=== PATIENT | male | born 2000 | race Caucasian/White ===

== ENCOUNTER 2023-07-08 15:25 | Inpatient (IN) ==
--- NOTE | 2023-07-08 15:54 | Emergency Department Note ---
History of Present Illness General Chief complaint: Hand Injury/Pain Stated complaint: R HAND SWELLING Time Seen by Provider: 07/08/23 15:34 History of Present Illness NAME: CARROLL CORDOVA AGE: 23 SEX: M : 2000 ARRIVES VIA: Walk-In INFORMANT: Patient ED PROVIDER(S): [facility], Marcelo Cruz The patient is well-appearing 23-year-old male who arrives to the emergency department for evaluation of right hand and forearm swelling. He reports no history of injury, no history of bleeding or clotting disorders. He states the palm of his hand began to swell, and he states the swelling extended up into the forearm. He denies significant pain with the edema, or loss of sensation/strength. He does report he believes the swelling has significantly decreased since his arrival. Home Medications Medication Instructions Recorded Confirmed Type Supplement See Rx Instructions .Route .COMPLEX 07/08/23 07/08/23 History Allergies Allergy/AdvReac Type Severity Reaction Status Date / Time animal dander Allergy Unknown Unknown Unverified 07/08/23 18:45 Past Med/Surg History Medical History Environmental and seasonal allergies Asthma Surgical History No pertinent past surgical history Social History Smoking Status: Current every day smoker Tobacco Type: E-cigarettes / Vaping and Smokeless Tobacco (Dip or Chew) Do You Dip or Chew Tobacco: Yes; Hx Alcohol Use: Yes Alcohol type: hard liquor Hx Substance Use: Yes Last Used Substance: Hours (ago) Last Used Substance Other:: 12 hours Substance Use Type Other:: Medical Marijuana Preferred Language: Burundian Prevocational/Rehabilitation Counselor Required: No Beliefs That Will Affect Care: None Current Living Situation: Alone Other Information That Helps Us Care for You: No Feels Safe at Home: Yes Safety Concerns: Feels Safe At This Time Assistive Devices: None Physical Exam Vital Signs Vital Signs - 24 hr 07/08/23 15:29 07/08/23 17:40 07/08/23 17:43 Temperature 36.9 C 36.5 C Temperature Source Temporal Artery Scan Oral Pulse Rate 104 H Pulse Rate [Left Finger] 105 H 104 H Pulse Rate from SpO2 Sensor Pulse Rhythm [Left Finger] Regular Pulse Strength [Left Finger] Normal Respiratory Rate 15 18 18 Respiratory Effort / Characteristics Non-Labored Spontaneous Non-Labored Spontaneous Respiratory Depth Normal Normal Respiratory Pattern Regular Blood Pressure 158/104 H Blood Pressure [Left Arm] 173/112 H 166/90 H Blood Pressure Mean 122 Blood Pressure Mean [Left Arm] 132 115 Blood Pressure Position [Left Arm] Lying Pulse Oximetry 97 97 98 Oxygen Delivery Method Room Air Room Air Sepsis Recent Fever Within 48 Hours No Sepsis New/Unexplained Change in Mental Status No Sepsis Action Taken by Nursing No Action Required 07/08/23 17:55 07/08/23 18:00 07/08/23 18:12 Temperature Temperature Source Pulse Rate 101 H 89 Pulse Rate [Left Finger] Pulse Rate from SpO2 Sensor 91 H Pulse Rhythm [Left Finger] Pulse Strength [Left Finger] Respiratory Rate 22 Respiratory Effort / Characteristics Respiratory Depth Respiratory Pattern Blood Pressure 149/108 H Blood Pressure [Left Arm] Blood Pressure Mean 122 Blood Pressure Mean [Left Arm] Blood Pressure Position [Left Arm] Pulse Oximetry 97 Oxygen Delivery Method Room Air Sepsis Recent Fever Within 48 Hours Sepsis New/Unexplained Change in Mental Status Sepsis Action Taken by Nursing 07/08/23 18:12 07/08/23 18:13 07/08/23 18:30 Temperature 37.0 C Temperature Source Oral Pulse Rate 97 H 103 H Pulse Rate [Left Finger] 93 H Pulse Rate from SpO2 Sensor 101 H 104 H Pulse Rhythm [Left Finger] Pulse Strength [Left Finger] Respiratory Rate 19 20 20 Respiratory Effort / Characteristics Respiratory Depth Respiratory Pattern Blood Pressure Blood Pressure [Left Arm] 149/108 H Blood Pressure Mean Blood Pressure Mean [Left Arm] 121 Blood Pressure Position [Left Arm] Pulse Oximetry 98 99 97 Oxygen Delivery Method Room Air Room Air Room Air Sepsis Recent Fever Within 48 Hours Sepsis New/Unexplained Change in Mental Status Sepsis Action Taken by Nursing 07/08/23 18:32 07/08/23 18:32 07/08/23 18:44 Temperature 36.7 C Temperature Source Oral Pulse Rate 103 H Pulse Rate [Left Finger] 109 H Pulse Rate from SpO2 Sensor 107 H Pulse Rhythm [Left Finger] Regular Pulse Strength [Left Finger] Normal Respiratory Rate 14 22 Respiratory Effort / Characteristics Non-Labored Spontaneous Respiratory Depth Normal Respiratory Pattern Regular Blood Pressure 152/102 H Blood Pressure [Left Arm] 152/102 H Blood Pressure Mean 108 Blood Pressure Mean [Left Arm] 118 Blood Pressure Position [Left Arm] Sitting Pulse Oximetry 98 97 Oxygen Delivery Method Room Air Room Air Sepsis Recent Fever Within 48 Hours Sepsis New/Unexplained Change in Mental Status Sepsis Action Taken by Nursing 07/08/23 19:00 07/08/23 19:00 Temperature Temperature Source Pulse Rate 119 H Pulse Rate [Left Finger] Pulse Rate from SpO2 Sensor 120 H Pulse Rhythm [Left Finger] Pulse Strength [Left Finger] Respiratory Rate 20 Respiratory Effort / Characteristics Respiratory Depth Respiratory Pattern Blood Pressure 158/88 H Blood Pressure [Left Arm] Blood Pressure Mean 115 Blood Pressure Mean [Left Arm] Blood Pressure Position [Left Arm] Pulse Oximetry 97 Oxygen Delivery Method Room Air Sepsis Recent Fever Within 48 Hours Sepsis New/Unexplained Change in Mental Status Sepsis Action Taken by Nursing VITALS: Vitals are noted on the nurse's note and reviewed by myself. Tachycardia, and hypertension present. GENERAL: 23-year-old male, in no acute distress, nondiaphoretic, well-developed well-nourished. SKIN: The skin was without rashes, erythema, edema, or bruising. HEAD: Normocephalic atraumatic. HEART: Regular rate and rhythm without murmurs gallops or rubs. LUNGS: Clear to auscultation bilaterally without wheezes, rales or rhonchi. No retractions or accessory muscle use. MUSCULOSKELETAL: No muscle atrophy, erythema, or edema noted. Full range of motion without joint tenderness in all extremities. No tenderness to palpation. Normal gait. Strength 5/5 throughout. NEURO: Patient was alert and oriented to person place and time. No focal neurological deficits. Course Administered Medications Discontinued Medications Diazepam (Diazepam 5 Mg/Ml 10ml Vial) 5 mg IV NOW STA Stop: 07/08/23 17:23 Last Admin: 07/08/23 17:39 Dose: 5 mg Documented By: GOPAL Diazepam (Diazepam 5 Mg/Ml 10ml Vial) 5 mg IV NOW STA Stop: 07/08/23 18:16 Last Admin: 07/08/23 18:25 Dose: 5 mg Documented By: GOPAL Diazepam (Diazepam 5 Mg/Ml 10ml Vial) 5 mg IV NOW STA Stop: 07/08/23 18:54 Last Admin: 07/08/23 18:54 Dose: 5 mg Documented By: GOPAL Multivitamins 10 ml/ Thiamine HCl 100 mg/ Folic Acid 1 mg/Sodium Chloride 1,011.2 mls @ 500 mls/hr IV .Q2H2M ONE Stop: 07/08/23 19:23 Last Infusion: 07/08/23 20:45 Dose: Infused Documented By: Admin: 07/08/23 18:25 Dose: 500 mls/hr Documented By: GOPAL Sodium Chloride (Nss) 1,000 mls @ 999 mls/hr IV .Q1H1M WISAM Stop: 07/08/23 18:24 Last Infusion: 07/08/23 18:40 Dose: Infused Documented By: Admin: 07/08/23 17:39 Dose: 999 mls/hr Documented By: GOPAL Lorazepam 0.5 mg/ Syringe 0.5 mls @ 2 mls/min IV NOW STA Stop: 07/08/23 21:22 Last Admin: 07/08/23 21:36 Dose: 2 mls/min Documented By: ALAN Medical Decision Making Differential Diagnosis DVT, musculoskeletal, infection, joint effusion, trauma, lymphedema, idiopathic, CHF, as well as other pathologies . Medical Records Attestation: I reviewed the patient's medical records. Home Medications Current Medication List: was personally reviewed by me Laboratory Data Attestation: I reviewed the patient's lab results. No leukocytosis, stable hemoglobin and hematocrit, no electrolyte abnormalities, medical alcohol negative, anion gap elevated at 13. 07/08/23 17:35 07/08/23 17:35 Lab Results 07/08/23 Range/Units 17:35 WBC 9.09 (4.8-10.8) K/ul RBC 5.15 (4.70-6.10) M/uL Hgb 16.5 (14.0-18.0) g/dl Hct 44.7 (42.0-52.0) % MCV 86.8 (80.0-100.0) fL MCH 32.0 (25.0-34.0) pg MCHC 36.9 H (32.0-36.0) g/dL RDW Std Deviation 37.8 (36.4-46.3) fL RDW Coeff of Lisette 11.8 (11.5-14.5) % Plt Count 368 (130-400) K/uL MPV 9.7 (9.4-12.4) fL Immature Gran % (Auto) 0.3 % Neut % (Auto) 72.3 % Lymph % (Auto) 18.5 % Valley % (Auto) 8.0 % Eos % (Auto) 0.6 % Baso % (Auto) 0.3 % Neut # (Auto) 6.57 H (1.40-6.50) K/uL Lymph # (Auto) 1.68 (1.20-3.40) K/uL Valley # (Auto) 0.73 H (0.11-0.59) K/uL Eos # (Auto) 0.05 (0.00-0.50) K/uL Baso # (Auto) 0.03 (0.00-0.20) K/uL Immature Gran # (Auto) 0.03 (0.01-0.20) K/uL Sodium 138 (136-145) mmol/L Potassium 4.0 (3.5-5.1) mmol/L Chloride 100 (98-107) mmol/L Carbon Dioxide 25 (21-32) mmol/L Anion Gap 13 H (3-11) BUN 12 (6-23) mg/dl Creatinine 0.89 (0.6-1.4) mg/dl Est Cr Clr Drug Dosing 137.1 ml/min Est GFR ( Amer) 141.7 ml/min Est GFR (Non-Af Amer) 122.2 ml/min BUN/Creatinine Ratio 13.5 (10-20) Glucose 106 H (70-99(Fasting)) mg/dl Osmolality 291 (280-300) mOsm/kg Calcium 10.8 H (8.6-10.3) mg/dl Phosphorus 2.9 (2.5-4.9) mg/dl Magnesium 1.8 (1.7-2.4) mg/dl Total Bilirubin 0.7 (0.2-1.0) mg/dl AST 27 (13-39) U/L ALT 17 (7-52) U/L Alkaline Phosphatase 51 (34-104) U/L Total Protein 9.0 H (6.0-8.3) gm/dl Albumin 5.6 H (3.4-5.0) gm/dl Globulin 3.4 (2.5-4.0) gm/dl Albumin/Globulin Ratio 1.6 (0.9-2) Ethyl Alcohol mg/dL < 10.0 (<10.0) mg/dl Imaging Data Attestation: I personally reviewed and interpreted this imaging study as follows: My Impression: Initial x-ray interpretation per myself shows no acute fracture or bony abnormality, no significant soft tissue swelling. Will await formal radiology report. Radiologist's Impression: Hand X-Ray 07/08/23 15:58 XR hand RT min 3V routine HISTORY: 23 years-old Male swelling pain acute pain and swelling of the right hand and wrist COMPARISON: None TECHNIQUE: 3 views of the right hand FINDINGS: No acute fracture, dislocation or osseous erosion. The joint spaces are preserved. Unremarkable soft tissues. IMPRESSION: Normal exam. ACT 112: Negative or not required by law. The above report was generated using voice recognition software. It may contain grammatical, syntax or spelling errors. Electronically signed by: Rigoberto Pascual M.D. 07/08/2023 4:39 PM Blood Pressure Blood Pressure Findings: Elevated blood pressure Blood Pressure Disposition: elevated BP felt to be situational MDM Narrative The patient is a well-appearing 23-year-old male who arrives to the emergency department for the above-stated complaint. Upon examination the patient reports he had significant erythema and edema to the right palm and forearm. He denies any repetitive motion, he denies any injury. He states no history of bleeding or clotting disorders. X-ray imaging of the hand was obtained, which per my initial interpretation, showed no soft tissue swelling, fracture or bony abnormality. Ultrasound imaging was ordered, however the patient declined imaging. At that time he informed me he did not need imaging because he knew it was not a blood clot. The patient reported to me at that time that he had been drinking last night, and took an unknown amount of a supplement called Ejaculoid. He reports the normal dose is 2 capsules and he is unaware of how many he took last night. Upon further assessment, the patient does report he drinks 8-10 drinks every day. He states his father does suffer from alcoholism. I spoke with the patient at length regarding his tachycardia, hypertension, and tremors at rest. I informed him I do believe his symptoms are related to alcohol withdrawal as opposed to the supplement. The patient does agree that this is a possibility due to his excessive alcohol use. A saline lock was obtained, CBC, CMP, medical alcohol level, magnesium, phosphorus, EKG were obtained, AWSS. The patient was provided with 1 L normal saline, and 5 mg of IV Valium, as well as a banana bag. A repeat dose of 5 mg of IV Valium was provided to the patient after the initial dose did not help alleviate his symptoms. I did speak with the patient at length regarding admission to the hospital, as well as outpatient treatment for alcoholism. The patient was agreeable to admission, case management was contacted and the patient was accepted by Dr. Nicholson from the [facility]. Please refer to Dr. Nicholson's documentation for further patient care. I spoke with poison control regarding the supplement, he stated they do not believe the patient's symptoms are related to the supplement he took last night. Continuous skin lifter bacon: Order was placed for continuous skin lifter bacon. Patient was placed on the skin lifter bacon. Patient was noted to be in sinus tachycardia at an initial rate of 105 bpm. Impression & Plan Alcohol withdrawal Discharge Plan Visit Data Chief Complaint: Hand Injury/Pain Stated Complaint: R HAND SWELLING ED Provider: [facility] ED Midlevel Provider: Nathaly Licona Discharge Problem: Alcohol withdrawal Patient Disposition: Admitted As Inpatient Discharge Instructions Interventions: ED Discharge Assessment Last Done: 07/08/23 20:47 Discharge Problem: Alcohol withdrawal Qualifiers: Complication of substance-induced condition: with unspecified complication Q ualified Code(s): F10.939 - Alcohol use, unspecified with withdrawal, unspecified
--- NOTE | 2023-07-08 16:40 | XRay Report ---
XR hand RT min 3V routine HISTORY: 23 years-old Male swelling pain acute pain and swelling of the right hand and wrist COMPARISON: None TECHNIQUE: 3 views of the right hand FINDINGS: No acute fracture, dislocation or osseous erosion. The joint spaces are preserved. Unremarkable soft tissues. IMPRESSION: Normal exam. ACT 112: Negative or not required by law. The above report was generated using voice recognition software. It may contain grammatical, syntax o r spelling errors. Electronically signed by: Rigoberto Pascual M.D. 07/08/2023 4:39 PM
[2023-07-08] MEDS: diazePAM 5 MG/ML 10ML VIAL IV STA ×3 (17:39→18:54)
[2023-07-08] MEDS: SODIUM CHLORIDE 0.9% 1,000 ML IV SCH (17:39)
[2023-07-08 18:14] LABS: Basophils # (auto) 0.03 K/uL (0.00-0.20); Basophils % (auto) 0.3 %; Eosinophils # (auto) 0.05 K/uL (0.00-0.50); Eosinophils % (auto) 0.6 %; Hematocrit (blood only) 44.7 % (42.0-52.0); Hemoglobin 16.5 g/dl (14.0-18.0); Immature Granulocytes # (auto) 0.03 K/uL (0.01-0.20); Immature Granulocytes % (auto) 0.3 %; Lymphocytes # (auto) 1.68 K/uL (1.20-3.40); Lymphocytes % (auto) 18.5 %; Mean Corpuscular Hgb Conc 36.9 g/dL (32.0-36.0); Mean Corpuscular Volume 86.8 fL (80.0-100.0); Mean Platelet Volume 9.7 fL (9.4-12.4); Monocytes # (auto) 0.73 K/uL (0.11-0.59); Neutrophils # (auto) 6.57 K/uL (1.40-6.50); Neutrophils % (auto) 72.3 %; Platelet Count 368 K/uL (130-400); RDW Coefficient of Variation 11.8 % (11.5-14.5); RDW Standard Deviation 37.8 fL (36.4-46.3); Red Blood Count 5.15 M/uL (4.70-6.10); White Blood Count 9.09 K/ul (4.8-10.8)
[2023-07-08] MEDS: MULTI-VITAMIN INFUSION 10 ML, THIAMINE HCL 100 MG, FOLIC ACID 1 MG in SODIUM CHLORIDE 0... IV ONE (18:25)
[2023-07-08 18:34] LABS: Albumin Globulin Ratio 1.6 (0.9-2); Albumin Level 5.6 gm/dl (3.4-5.0); BUN Creatinine Ratio 13.5 (10-20); Bilirubin,Total 0.7 mg/dl (0.2-1.0); Calcium 10.8 mg/dl (8.6-10.3); Creatinine Clr Calc Pharmacy 137.1 ml/min; Est GFR (African American) 141.7 ml/min; Est GFR (Non-African American) 122.2 ml/min; Globulin 3.4 gm/dl (2.5-4.0); Magnesium 1.8 mg/dl (1.7-2.4); Phosphorus 2.9 mg/dl (2.5-4.9)
--- NOTE | 2023-07-08 18:45 | History & Physical Report ---
Date of Service July 08, 2023 Assessment & Plan (1) Alcohol withdrawal: Plan: Suspected alcohol withdrawal Patient with 8-10 drinks, each drink containing around 1-3 shots of liquor generally daily for the last year and a half. Went approximately a week without alcohol a few months ago and did feel tremulous with this More recently has been waking up in the mornings and has had hallucinations including bugs crawling on the wall, hearing nondescript voices, and which are not present when drinking. Denies personal or family history of psychosis. Does have a family history of alcoholism. Has a personal history of anxiety Patient much more tremulous and tachycardic than normal. Patient did take a large amount of an [id number] workout supplement called Ejaculoid. This was reviewed with poison control, low suspicion for toxidrome however multiple stimulant ingredients and likely is playing some role in worsening his anxiety and withdrawal. No metabolic acidosis. Serum osmolality is pending. Alcohol is negative. Urine tox is pending, patient is prescribed medical marijuana and denies recreational drug use Improved and received valium 5mg IV x3 front load. Transitioned to [facility]. Patient reports he does have a desire to quit drinking and does have a significant anxiety proponent that leads him to drink. Would like to both stop drinking and pursue additional treatment for his anxiety No transaminitis Patient is interested in potential pharmacologic assisted maintenance of sobriety as outpatient, in addition to counseling programs. Case management consulted. Recommend patient follow-up with [facility] family medicine on discharge as his needs will exceed student health services S/p banana bag. Continue thiamine, folic acid. Maintenance fluids continued until p.o. improved. (2) Adverse drug interaction with dietary supplement: Plan: - as noted - no QTp (3) Anxiety: Plan: Patient reports he is for medical marijuana, has never tried SSRIs or other pharmacologic agents for anxiety. Notes he has severe anxiety and this plays a role in his drinking. Denies any past or current history of SI/HI, feels safe and feels comfortable reaching out if these feelings were to develop Would like to follow-up with PCP as an outpatient for continued treatment of anxiety and potential SSRI initiation. He is a student at [employer] and does not have a family doctor here, agreeable to following up at [facility] Plan DVT prophylaxis: SCD's Disposition: PCU CODE STATUS: Full code Diet: Regular History of Present Illness Primary Care Provider: [facility] Clarence is a 23-year-old male with right hand/forearm swelling [place] maladies on x-ray and he declined ultrasound as he did not believe he had a blood clot. Patient was tachycardic, tremulous while in the ER and has been drinking 8-10 drinks every day, took multiple [id number] supplements the previous night. Case was discussed with poison control due to concern for taking an unknown amount of "Ejaculoid" supplements, this was not felt to be likely to be causing symptoms or toxicity. He does not have a metabolic acidosis but does have an elevated anion gap, alcohol was negative, lactate pending. Serum osmolality/osmolar gap pending on admission. Due to his consistent intake of 10+ drinks per day regularly and suspected withdrawal symptoms with family history of alcoholism and withdrawal patient was recommended for admission on a [facility] following ER frontloaded with Valjennifer. 10+ dirnks daily for at least a year to year and a half. Pregamed with friends then continued. Went through at least a dozen drinks each with 1-3 shots of liquor. In the last year has not gone many days without alcohol, did go about one week without EtoH but felt shakey. REcently going without alcohol symptoms seem sworse, has gotten shakey, heard voices and seen bugs on the wall which just happened a few days ago. Woke up in the morning when it happened, last drink was in the evening prior. Took ejaculase supplement yesterday, no tsure how much No other supplement use +Medical marijuana prescribed for anxiety. Denies recreational drug use. Hx of alcholism in father Denies fever. Has had sweats. +nausea, no vomiting. No abdominal pain. No syncope or presycnope. No chest pain. Vapes --> nicotine. Vapes marjiana sometimes as well. Uses vape several times daily. Declines nicotine patch. Hx of asthma. Denies other medical problems. Denies medication allergies. Allergies Allergy/AdvReac Type Severity Reaction Status Date / Time animal dander Allergy Unknown Unknown Unverified 07/08/23 18:45 Home Medications Medication Instructions Recorded Confirmed Type Supplement See Rx Instructions .Route .COMPLEX 07/08/23 07/08/23 History Past Med/Surg History Medical History Environmental and seasonal allergies Asthma Surgical History No pertinent past surgical history Social History Smoking Status: Current every day smoker Tobacco Type: E-cigarettes / Vaping Preferred Language: Turkmen Feels Safe at Home: Yes Physical Exam Physical Exam: General: Tremulous, tearful. Appears anxious. Skin is warm, dry. Shaky HEENT: Atraumatic, normocephalic. Pulm: CTAB A&P. -wheezes, -rales, -rhonchi. Symmetrical chest rise. No increased work of breathing. No respiratory distress. Cardiac: Tachycardic, -mrg. Radial pulses intact and symmetrical. Abdominal: Nontender, nondistended, soft. BS present. Extremities: On exam right hand/forearm is without swelling/pitting edema/asymme try. Previously reported hand swelling has resolved. Sensation is soft touch intact in hands bilaterally, radial pulse intact bilaterally. Cap refill brisk in thumb bilaterally Results & Data Results & Data Vital Signs (Past 12 Hours) Vital Signs Temp Pulse Pulse Resp BP BP Pulse Ox 07/08/23 18:13 37.0 C 93 H 20 149/108 H 99 07/08/23 17:55 101 H 07/08/23 17:43 104 H 18 166/90 H 98 07/08/23 17:40 36.5 C 105 H 18 173/112 H 97 07/08/23 15:29 36.9 C 104 H 15 158/104 H 97 O2 Del Method 07/08/23 18:13 Room Air 07/08/23 17:55 07/08/23 17:43 07/08/23 17:40 Room Air 07/08/23 15:29 Room Air PG Care Time/CCT Total # of Minutes Spent Total Time Spent with Patient: Total time spent is greater than 50% in coordination of care (as documented) at patient's floor/unit and/or counseling patient: Coding Level of Care Code 74163 INT INP/OBS CARE 3/75MIN Diagnoses Alcohol withdrawal F10.939 Adverse drug interaction with dietary supplement T50.905A Anxiety F41.9
[2023-07-08] MEDS ORDERED: LORazepam 3 MG in SYRINGE 1.5 ML IV PRN (21:03)
[2023-07-08] MEDS ORDERED: Ativan IV Alcohol Withdrawal--Active Protocol IV PRN (21:03)
[2023-07-08] MEDS ORDERED: LORazepam 2 MG in SYRINGE 1 ML IV PRN (21:03)
[2023-07-08] MEDS: LORazepam 0.5 MG in SYRINGE 0.25 ML IV STA (21:36)
[2023-07-08] MEDS: LACTATED RINGER'S 1,000 ML IV SCH (23:11)
[2023-07-09] MEDS: ALBUTEROL HFA 8 GM INHALER INH PRN (01:18)
[2023-07-09 07:37] LABS: Basophils # (auto) 0.03 K/uL (0.00-0.20); Basophils % (auto) 0.3 %; Eosinophils % (auto) 2.2 %; Hematocrit (blood only) 41.7 % (42.0-52.0); Hemoglobin 14.4 g/dl (14.0-18.0); Immature Granulocytes # (auto) 0.12 K/uL (0.01-0.20); Immature Granulocytes % (auto) 1.3 %; Lymphocytes # (auto) 2.35 K/uL (1.20-3.40); Lymphocytes % (auto) 26.4 %; Mean Corpuscular Hemoglobin 30.9 pg (25.0-34.0); Mean Corpuscular Hgb Conc 34.5 g/dL (32.0-36.0); Mean Corpuscular Volume 89.5 fL (80.0-100.0); Mean Platelet Volume 9.4 fL (9.4-12.4); Monocytes # (auto) 0.77 K/uL (0.11-0.59); Monocytes % (auto) 8.7 %; Neutrophils # (auto) 5.42 K/uL (1.40-6.50); Neutrophils % (auto) 61.1 %; Platelet Count 295 K/uL (130-400); RDW Coefficient of Variation 11.9 % (11.5-14.5); RDW Standard Deviation 39.1 fL (36.4-46.3); Red Blood Count 4.66 M/uL (4.70-6.10); White Blood Count 8.89 K/ul (4.8-10.8)
[2023-07-09] MEDS: FOLIC ACID 1 MG TAB PO SCH (08:06)
[2023-07-09] MEDS: THIAMINE HCL 100 MG TAB PO SCH (08:06)
[2023-07-09 08:07] LABS: Albumin Globulin Ratio 1.6 (0.9-2); Albumin Level 4.3 gm/dl (3.4-5.0); BUN Creatinine Ratio 14.1 (10-20); Bilirubin,Total 0.8 mg/dl (0.2-1.0); Calcium 9.5 mg/dl (8.6-10.3); Creatinine Clr Calc Pharmacy 134.2 ml/min; Est GFR (African American) 137.3 ml/min; Est GFR (Non-African American) 118.5 ml/min; Globulin 2.7 gm/dl (2.5-4.0); Potassium 4.1 mmol/L (3.5-5.1)
--- NOTE | 2023-07-09 12:13 | Discharge Summary ---
Date of Service July 09, 2023 Admission HPI Per Admitting Provider Clarence is a 23-year-old male with right hand/forearm swelling [place] maladies on x-ray and he declined ultrasound as he did not believe he had a blood clot. Patient was tachycardic, tremulous while in the ER and has been drinking 8-10 drinks every day, took multiple [id number]-[id number] supplements the previous night. Case was discussed with poison control due to concern for taking an unknown amount of "Ejaculoid" supplements, this was not felt to be likely to be causing symptoms or toxicity. He does not have a metabolic acidosis but does have an elevated anion gap, alcohol was negative, lactate pending. Serum osmolality/osmolar gap pending on admission. Due to his consistent intake of 10+ drinks per day regularly and suspected withdrawal symptoms with family history of alcoholism and withdrawal patient was recommended for admission on a [facility] following ER frontloaded with Beth. 10+ dirnks daily for at least a year to year and a half. Pregamed with friends then continued. Went through at least a dozen drinks each with 1-3 shots of liquor. In the last year has not gone many days without alcohol, did go about one week without EtoH but felt shakey. REcently going without alcohol symptoms seem sworse, has gotten shakey, heard voices and seen bugs on the wall which just happened a few days ago. Woke up in the morning when it happened, last drink was in the evening prior. Took ejaculase supplement yesterday, no tsure how much No other supplement use +Medical marijuana prescribed for anxiety. Denies recreational drug use. Hx of alcholism in father Denies fever. Has had sweats. +nausea, no vomiting. No abdominal pain. No syncope or presycnope. No chest pain. Vapes --> nicotine. Vapes marjiana sometimes as well. Uses vape several times daily. Declines nicotine patch. Hx of asthma. Denies other medical problems. Denies medication allergies. Admission Exam Per Admitting Provider General: Tremulous, tearful. Appears anxious. Skin is warm, dry. Shaky HEENT: Atraumatic, normocephalic. Pulm: CTAB A&P. -wheezes, -rales, -rhonchi. Symmetrical chest rise. No increased work of breathing. No respiratory distress. Cardiac: Tachycardic, -mrg. Radial pulses intact and symmetrical. Abdominal: Nontender, nondistended, soft. BS present. Extremities: On exam right hand/forearm is without swelling/pitting edema/asymmetry. Previously reported hand swelling has resolved. Sensation is soft touch intact in hands bilaterally, radial pulse intact bilaterally. Cap refill brisk in thumb bilaterally Principal Diagnosis Alcohol use disorder with withdrawal, anxiety Discharge Exam General:Alert and oriented, no acute distress, very pleasant young man Cardio: Regular rate and rhythm, no murmur, Resp:No increased resp effort, no resp distress GI: Soft and nontender, nondistended, Skin: Warm, pink, dry, Discharge Data Allergies Allergy/AdvReac Type Severity Reaction Status Date / Time animal dander Allergy Unknown Unknown Unverified 07/08/23 18:45 Consultations 07/08/23 18:45 ED Decision to Admit Stat 07/09/23 08:53 Consult Behavioral Health Liaison Routine Hospital Course (1) Alcohol use disorder: (2) Adverse drug interaction with dietary supplement: (3) Alcohol withdrawal: (4) Asthma: (5) Anxiety: Plan Pt is a 23 yo male with a past med hx of alcohol use disorder, asthma, and anxiety who presents to the hospital on 07/08 for hand swelling and alcohol withdrawal. #Alcohol use disorder with suspected alcohol withdrawal - pt endorses 8-10 mixed drinks daily, each with 1-3 shots of liquor, for the last year and a half - did go 1 week without alcohol months ago and got shaky with a tremor at that time - more recently has been waking up in the mornings and has had hallucinations including bugs crawling on the wall, hearing nondescript voices, and which are not present when drinking has a fam hx of anxiety and alcoholism - presented to the hospital tachycardic and with HTN but was also noted per H&P to have taken a large quantity of a supplement called Ejaculoid, which can cause these symptoms as well - does also use medical marijuana, edible, amount varies by the day - he desires to quit drinking and notes underlying anxiety is a significant factor leading him to drink - AWSS protocol, last dose of any benzo was last night - feels well today, no more tachycardia or HTN, no tremor, last drink >26 hours ago - to follow up in the [facility] residency clinic #Anxiety - patient reports he uses medical marijuana, has never tried SSRIs or other pharmacologic agents for anxiety - Notes he has severe anxiety and this plays a role in his drinking. Denies any past or current history of SI/HI, feels safe and feels comfortable reaching out if these feelings were to develop Would like to follow-up with PCP as an outpatient for continued treatment of anxiety - He is a student at [employer] and does not have a family doctor here, agreeable to following up at [facility] - will start lexapro 10 mg daily, trazodone HS, and hydroxyzine prn for anxiety - f/u bernice in [facility] clinic prior to discharge #Hand swelling - xray wnl - swelling has resolved when seen this morning Total Time Total Time Spent Total Time Spent (In Minutes): <30 Discharge Plan Discharge Items Patient Disposition: Home - Self-Care Reason For Visit: ETOH WITHDRAWAL, SUPPLEMENT INGESTION Discharge Diagnosis: Alcohol use disorder with withdrawal, anxiety Activity: Per Instructions section Non-emergency contact: Primary Care Provider Call non-emergency contact if: you have any medication questions and your symptoms worsen Follow-up/Referrals: [facility] [Primary Care Provider] - Marla Fuentes DO [Resident] - Diet: Regular Addtl Attending Provider Instructions: You were admitted for anxiety and alcohol use disorder. Your symptoms of tachycardia (fast heart rate) and hypertension (high blood pressure) have improved, and we feel it is safe for you to return home with follow-up in our office. At this point, following up with a primary care provider will be very important in helping to get your anxiety under control. Sometimes, multiple medication adjustments may be needed to find a regime that works best for you. You should also take some time to try to establish healthy habits of relaxation such as meditation, exercising, hobbies, or video games to help with dealing with daily stress. We suggest you also start to look for a therapist or counselor in the area, as we know that talking through issues and therapy to help people adjust the way they view stressful and anxiety-inducing events helps individuals better cope with stressful situations. You can Google therapy providers in the area and call around to ask for availability and insurance coverage, and we can give you a hand out of a list of providers at your next appointment noted below. Medications: Your medication list has been reviewed and reconciled upon discharge to ensure accuracy and continuity of care. An updated list of all your medications is included with your hospital discharge paperwork. Please review this list closely, and make note of any changes. We sent a new medication called Lexapro (escitalopram) to your pharmacy. Take Lexapro (escitalopram) as 10 mg daily. This is the medication for your anxiety that takes about 4 weeks to build up in your system to help with symptoms. Some people may notice some stomach upset with the first few doses that goes away over time. We sent a new medication called Trazodone to your pharmacy. Take Trazodone as 50 mg before bed. This medication helps with anxiety, but also has the side effect of making people tired, so we tend to give it to those who have trouble sleeping because they have anxiety, or either of the two problems independently. Try to take this nightly for the next 1 week until you see your new doctor in the office to discuss if this is helping and if it needs to be taken daily ve rsus as needed. We sent a new medication called Hydroxyzine to your pharmacy. Take Hydroxyzine as 25 mg up to 4 times a day. This is a medication for anxiety that can be used as needed for acute anxiety episodes. This can make you feel a bit tired, so please assess how the dose typically makes you feel and use caution if you need to drive after taking a dose until you know how it makes you feel. If you have any issues filling these prescriptions, please call [phone] and ask to leave a message for Dr. Fuentes. Take your medications as instructed; do not skip a dose of your medicines. Make sure all of your doctors know every medicine you are taking (including wkpd-foq-feumnga medicines, vitamins, and supplements). Call your primary care provider before taking any new medicines (including over- the-counter medicines, vitamins, and supplements), because some of these may interact with your current medications, or may make your symptoms worse. Tell your primary care provider if you cannot afford your medications. Activity: You can do normal everyday activities as your body allows. Take rest breaks if you feel tired. Do not overexert. Stop activity if you have pain, shortness of breath or feel dizzy. Follow-up appointments: We have scheduled an appointment for you to see Dr. Fuentes in the office on July 14 at 3:00pm. Please arrive at or before 2:45pm to give yourself time to fill out registration paperwork. Our office is located at [address], [address] [place] [address]. Our phone number is [phone] if you have any questions or need to reschedule. Every time you see your primary care physician, or any other doctor, bring your medication list, and a list of questions. CONTACT YOUR PRIMARY CARE PROVIDER if you experience any of the following: Shortness of breath or difficulty breathing Swelling of your feet, ankles, hands or abdomen Feeling tired with normal activity or experiencing dizziness or fainting Difficulty following your treatment plan, or difficulty taking medications CALL 911 OR GO TO THE EMERGENCY DEPARTMENT if you experience any of the following: Severe abdominal pain or nausea/vomiting Severe chest pain, or chest pain that radiates (moves) to your jaw or arm Sudden, severe shortness of breath or difficulty breathing Thank you for allowing us to participate in your care. Pending Studies at Discharge: No Stand-Alone Forms: [facility] Medications and DC Order Prescriptions: New escitalopram oxalate 10 mg tablet 10 mg PO DAILY Qty: 30 1RF trazodone 50 mg tablet 50 mg PO HS Qty: 30 1RF hydroxyzine HCl 25 mg tablet 25 mg PO Q6H PRN (Reason: anxiety) Qty: 60 1RF Discontinued Supplement See Rx Instructions .ROUTE .COMPLEX Rx Instructions: OTC. Dosing varies per pt, didn't mention the name Discharge Orders: Discharge Order (Routine); Ordered 07/09/23 Ordered By: Marla Cast/Other Patient Handouts: Social Drinking vs Problem Drinking, Your Body's Response to Anxiety, Alcohol Withdrawal: What to Expect, Understanding Anxiety Disorders Admission Data Admit Date/Time: 07/08/23 19:27 Attending Provider: Agusto Ku Admit Provider: Edmund Nicholson Primary Care Provider: [facility] Other Providers: Edmund Nicholson Other Interventions: Discharge Summary Assessment (RN) Last Done: 07/09/23 15:18 Supervising Physician Co-Signing Physician Notes I personally examined the patient and verified all colón points of history and exam, discussed case, and agree with decision making with Dr Fuentes feeling better and feels up to going home. mom present as well and feels safe to take him home as well vitals noted nad heent nc at mmm breathing unlabored no accessory muscles good effort skin no rashes no pallor or icterus no tremulousness tachycardia/tremulousness - could have been EtOH withdrawal but also possibly from his supplement (which appears to have had yohimbine etc) - either way if it was withdrawal doing well enough to be safe for home - discussed if he worsened (tachy/shaky/sweaty) would want him to come back but otherwise safe for home EtOH abuse/withdrawal/anxiety/depression - extensive discussion on EtOH as a maladaptive tool for anxiety/depression symptom management. discussed more productive tools (active and quiet meditative) and how to utilize. pt found this helpful. would benefit from counselling. meds for now - lexapro, trazodone hs, atarax prn, PCP f/u safe/stable for home otherwise as above Resident Activity Tracking Resident Involvement: Resident Care Provided Care Provided: Adult Hospital Medicine
[2023-07-09] MEDS: LORazepam 1 MG in SYRINGE 0.5 ML IV PRN (13:22)
--- NOTE | 2023-07-09 17:19 | Billing Data ---
Date of Service July 09, 2023 Coding Level of Care Code 32294 IN/OBS DISCH 30 MIN/LESS
--- NOTE | 2023-07-09 21:50 | Electrocardiogram Report ---
Test Reason : Blood Pressure : / mmHG Vent. Rate : 115 BPM Atrial Rate : 115 BPM P-R Int : 130 ms QRS Dur : 100 ms QT Int : 324 ms P-R-T Axes : 083 091 035 degrees QTc Int : 448 ms Sinus tachycardia Rightward axis Abnormal ECG When compared with ECG of 21-JUL-2021 18:31, Vent. rate has increased BY 40 BPM Confirmed by Rigoberto Walker ([id number]) on 07/09/2023 9:49:41 PM Referred By: REFERRED SELF Confirmed By:Rigoberto Walker
[2023-07-11 23:28] LABS: 7-Aminoclonazepam NEGATIVE ng/mL (<25); Alpha-Hydroxyalprazolam NEGATIVE ng/mL (<25); Alphahydroxymidazolam NEGATIVE ng/mL (<50); Alphahydroxytriazolam NEGATIVE ng/mL (<50); Amobarbital DNR ng/mL (<100); Amphetamines, Ur NEGATIVE ng/mL (<500); Amphetemines Ur GC/MS DNR ng/mL (<250); Barbiturates, Urine NEGATIVE ng/mL (<300); Benzodiazepines,Ur POSITIVE ng/mL (<100); Butalbital DNR ng/mL (<100); Cocaine, Urine NEGATIVE ng/mL (<150); Cocaine,Ur GC/MS DNR ng/mL (<100); Codeine DNR ng/mL (<50); Confirmatory Facility DNR; EDDP DNR ng/mL (<100); Hydrocodone DNR ng/mL (<50); Hydromorphone DNR ng/mL (<50); Hydroxyethylflurazepam NEGATIVE ng/mL (<50); Lorazepam 110 ng/mL (<50); Methadone, Ur GC/MS NEGATIVE ng/mL (<100); Methadone, Urine DNR ng/mL (<100); Methamphetamine DNR ng/mL (<250); Morphine DNR ng/mL (<50); Norhydrocodone DNR ng/mL (<50); Noroxycodone DNR ng/mL (<50); Opiates, Urine NEGATIVE ng/mL (<100); Oxycodone,Ur Screen NEGATIVE ng/mL (<100); Pentobarbital DNR ng/mL (<100); Phencyclidine, Ur NEGATIVE ng/mL (<25); Phencyclidine,Ur GC/MS DNR ng/mL (<25); Secobarbital DNR ng/mL (<100); THC20, Qual, Urine POSITIVE ng/mL (<20); Temazepam 123 ng/mL (<50); Tetrahydrocannabinol 1030 ng/mL (<5)
== END 2023-07-09 15:51 | disposition home or self-care (01) | DRG 897 ==
LOC: ED 15:25 → SUATTDRO 19:27 → 2S 19:27